=== PATIENT | female | born 1980 | race African-American/Black ===

== ENCOUNTER 2024-12-18 20:27 | Emergency (ER) | payer BC ==
[~2024-12-18] VITALS: Ht 149.9 cm; Wt 55.0 kg
[2024-12-18 20:38] VITALS: TEMP 37.1; O2SAT 98
[2024-12-18 21:50] LABS: BASOPHILS % 0.7 % (0.0-2.0); EOSINOPHILS % 1.0 % (0.0-5.0); HEMATOCRIT. 34.3 % (36.0-48.0); HEMOGLOBIN. 11.5 g/dL (12.0-16.0); LYMPHOCYTES % 15.4 % (20.0-50.0); MEAN PLATELET VOLUME 8.3 fl (7.4-10.4); MONOCYTES % 6.4 % (2.0-8.0); NEUTROPHILS % 76.5 % (40.0-76.0); PLATELET 294 x1000/uL (130-400); RED BLOOD CELL COUNT 4.35 mill/uL (4.2-5.4); RED CELL DISTRIBUTION WIDTH 14.6 % (11.6-14.6)
[2024-12-18 22:04] LABS: CREATININE 0.7 mg/dL (0.6-1.0)
[2024-12-18 22:05] LABS: UREA NITROGEN BLOOD 7 mg/dL (9-23)
[2024-12-18 22:24] LABS: B-HCG QUANTITATIVE 101124 mIU/mL (<6)
[2024-12-18] MEDS ORDERED: PREN-28 MT (22:54)
[2024-12-18 23:17] VITALS: BP 101/55; PULSE 68; RESP 14; O2SAT 100
== END 2024-12-18 23:22 | disposition home or self-care (01) ==
LOC: ER 20:27
DX: O26.891 Other specified pregnancy related conditions, first trimester (principal); O20.8 Other hemorrhage in early pregnancy; O99.011 Anemia complicating pregnancy, first trimester; R10.2 Pelvic and perineal pain; Z88.1 Allergy status to other antibiotic agents; Z3A.11 11 weeks gestation of pregnancy
CPT/HCPCS: 36415; 76801; 80048; 81025; 84702; 85025; 99284